=== PATIENT | male | born 1975 | race Hispanic/Latino ===

== ENCOUNTER 2019-04-08 18:48 | Emergency (ER) | payer SELFPAY ==
[2019-04-08] MEDS ORDERED: traMADol HCl 50 MG TAB ONE (19:32)
--- NOTE | 2019-04-08 20:13 | RAD ---
Right foot 3 views HISTORY: Right foot pain. FINDINGS: Lisfranc joint alignment is anatomic. Plantar arch is maintained. No acute fracture, disloc ation, or aggressive osseous erosions. No radiopaque foreign body or soft tissue gas are apparent at the plantar tissues. IMPRESSION: No acute osseous abnormalities are demonstrated.
== END 2019-04-08 20:50 | disposition home or self-care (01) ==
LOC: ERS 18:48
DX: L03.115 Cellulitis of right lower limb (principal); E11.9 Type 2 diabetes mellitus without complications; E78.5 Hyperlipidemia, unspecified; E78.00 Pure hypercholesterolemia, unspecified; F41.9 Anxiety disorder, unspecified; F17.210 Nicotine dependence, cigarettes, uncomplicated; Z79.84 Long term (current) use of oral hypoglycemic drugs; Z79.899 Other long term (current) drug therapy